=== PATIENT | female | born 1995 | race Caucasian/White ===

== ENCOUNTER 2024-08-26 08:11 | Outpatient (RCR) | payer MEDICAID, SELFPAY ==
--- NOTE | 2024-08-26 08:39 | CTCFLWUP_ITS ---
[facility] [address] [place], [place] [address] FOLLOW-UP NOTE Date: 08/26/2024 MR#: [id number] Name: RON CAMARGO : 1995 Dx: C73 Malignant neoplasm of thyroid gland Identification. Patient with stage I history of thyroid cancer status post total thyroidectomy 2017 in [place] postop iodine 100 mCi. In [place]. Postop radioiodine scan reportedly was negative for an y mets. Currently on 200 mcg of Synthroid being followed by saw operator, Dr. Ledesma in [place]. CT 10/18/2023 revealed bilateral carotid triangle lymph nodes largest 12 mm in the right. Labs 03/05/2024 thyroid antibody less than [address] 03/17/2024 revealed persistent significant adenopathy right greater than left. CT-guided biopsy 05/07/2024 negative for malignancy. Assessment #1 history of stage I papillary thyroid cancer total thyroidectomy postop iodine 100 mCi 2 017. #2. Patient getting Synthroid 200 mcg followed by saw operator, Dr Ledesma, to keep her euthyroid. #3. Order ultrasound of the neck/thyroid area.. #4. 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 #5. I will see her in 6 months if labs and ultrasound unremarkable. Electronically signed by: Jaden Andrade M.D. 08/26/2024 8:37 AM
== END 2024-09-06 23:59 | disposition home or self-care (01) ==
LOC: SCTC 08:11
PROVIDERS: PCP Registered Nurse; Referring Provider Registered Nurse; Visit Provider Radiology Therapeutic Radiology
DX: Z08 Encounter for follow-up examination after completed treatment for malignant neoplasm (principal); Z85.850 Personal history of malignant neoplasm of thyroid; E89.0 Postprocedural hypothyroidism; Z79.890 Hormone replacement therapy; Z92.3 Personal history of irradiation
CPT/HCPCS: 99213; G0463

== ENCOUNTER → 2024-09-17 | Outpatient (CLI) | payer MEDICAID, SELFPAY ==
--- NOTE | 2024-09-17 13:00 | XR_ITS ---
Examination: Thyroid sonography complete TECHNIQUE: By resolution grayscale sonographic images thyroid lobes with color flow analysis Exam date and time: September 17, 2024 1302 hours INDICATIONS: Thyroid cancer diagnosis 2017 status post thyroidectomy FINDINGS: No thyroid tissue No soft tissue mass in the thyroid bed IMPRESSION: No thyroid tissue No soft tissue mass in the thyroid bed
== END | disposition home or self-care (01) ==
LOC: CDIM 12:46
PROVIDERS: Referring Provider Radiology Therapeutic Radiology; Visit Provider Radiology Therapeutic Radiology
DX: C73 Malignant neoplasm of thyroid gland (principal)
CPT/HCPCS: 76536

== ENCOUNTER 2025-05-07 10:28 | Outpatient (RCR) | payer MEDICAID, SELFPAY ==
--- NOTE | 2025-05-07 11:25 | CTCFLWUP_ITS ---
[facility] [address] [place], [place] [address] FOLLOW-UP NOTE Date: 05/07/2025 MR#: [id number] Name: RON CAMARGO : 1995 Dx: [id number] Malignant neoplasm of thyroid gland Identification. Patient with stage I history of thyroid cancer status post total thyroidectomy 2017 [place] postop iodine 100 mCi in [place]. Told by the iodine scan reportedly was negative for any mets. Currently on Synthroid medication managed by excelsior picker Dr. Ledesma in [place]. CT 10/18/2023 revealed bilateral carotid triangle lymph nodes largest 12 mm on the right. Labs 03/05/2024 thyroglobulin antibody less than 1 thyroglobulin 3.[address] 03/17/2024 revealed significant carotid triangle submental lymphadenopathy. 05/07/[address]-guided biopsy of enlarged right carotid triangle lymph node which showed no malignancy. Ultrasound 09/17/2024 showed no thyroid tissue and no soft tissue mass in the thyroid bed. Most recent TFTs January 06, 2025 TSH 0.260 Free T4 1.25 T3 total 1.09 euthyroid except TSH in the slightly below normal range. Thyroglobulin has dropped since last blood draw. Patient reportedly is now taking Synthroid 300 mcg a day being followed by excelsior picker. I will see her in 6 months with another ultrasound. Electronically signed by: Jaden Andrade M.D. 05/07/2025 11:22 AM
== END 2025-05-07 23:59 | disposition home or self-care (01) ==
LOC: SCTC 10:28
PROVIDERS: PCP Registered Nurse; Referring Provider Radiology Therapeutic Radiology; Visit Provider Radiology Therapeutic Radiology
DX: Z08 Encounter for follow-up examination after completed treatment for malignant neoplasm (principal); Z85.850 Personal history of malignant neoplasm of thyroid; E89.0 Postprocedural hypothyroidism; Z79.890 Hormone replacement therapy
CPT/HCPCS: 99213; G0463